=== PATIENT | male | born 1960 | race Caucasian/White ===

== ENCOUNTER 2019-01-25 19:41 | Emergency (ER) | payer BC ==
--- NOTE | 2019-01-25 20:02 | RAD ---
Exam: Chest one view HISTORY:Lightheadedness. Atrial fibrillation Comparison: 02/21/2014 FINDINGS: Lungs: No masses or consolidation. Cardiac silhouette: Normal size Pulmonary vessels: Normal Pleural Spaces: Clear Pneumothorax: None Osseous abnormalities: None of acuity. IMPRESSION: No focal consolidation.
[2019-01-25 20:17] LABS: #Basophils 0.1 thou/uL (0.0-0.2); #Eosinphils 0.1 thou/uL (0.0-0.7); #Lymphocytes 1.9 thou/uL (1.20-3.40); #Monocytes 0.7 thou/uL (0.11-0.59); #Neutrophils 8.2 thou/uL (1.40-6.50); %Basophils 0.5 % (0.0-1.0); %Eosinophils 0.6 % (0.0-10.0); %Lymphocytes 17.7 % (21.0-51.0); %Monocytes 6.5 % (0.0-10.0); %Neutrophils 74.6 % (42.0-75.0); Hemoglobin 17.6 g/dL (14.0-18.0); Mean Corpuscular Hemoglobin 33.3 pg (27.0-31.0); Mean Corpuscular Volume 97.7 fL (78.0-98.0); Mean Platelet Volume 8.1 fL (7.4-10.4); Platelet Count 203 thou/uL (130-400); RBC Distribution Width 11.6 % (11.5-14.5); White Blood Cell (WBC) Count 10.9 thou/uL (4.8-10.8)
[2019-01-25 20:47] LABS: ALT (SGPT) 34 U/L (8-55); AST (SGOT) 30 U/L (5-34); Albumin 4.6 g/dL (3.5-5.0); Alkaline Phosphatase 51 U/L (40-150); Anion Gap 14 mmol/L (10-20); BUN (Urea Nitrogen) 19 mg/dL (8.4-25.7); Bilirubin, Total 0.9 mg/dL (0.2-1.2); CK (CPK) 307 U/L (30-200); Calc. Creatinine Clearance 0 mL/min (70-130); Calcium 10.2 mg/dL (7.8-10.44); Carbon Dioxide 24 mmol/L (22-29); Chloride 102 mmol/L (98-107); Estimated GFR-MDRD 39; Globulin 2.3 g/dL (2.4-3.5); Glucose 88 mg/dL (70-105); Potassium 4.3 mmol/L (3.5-5.1); Protein, Total 6.9 g/dL (6.0-8.3); Sodium 136 mmol/L (136-145)
== END 2019-01-26 00:05 | disposition home or self-care (01) ==
LOC: ERS 19:41
DX: I48.91 Unspecified atrial fibrillation (principal); E86.0 Dehydration; E78.5 Hyperlipidemia, unspecified; I10 Essential (primary) hypertension; F32.9 Major depressive disorder, single episode, unspecified; F17.210 Nicotine dependence, cigarettes, uncomplicated; Z79.899 Other long term (current) drug therapy
CPT/HCPCS: 36415; 71045; 80053; 82550; 84484; 85025; 93005; 94760; 96360; 96361

== ENCOUNTER 2019-11-12 12:33 | Outpatient (CLI) | payer BC ==
--- NOTE | 2019-11-12 13:36 | MRI ---
MRI LOWER EXTREMITY JOINT RIGHT WITHOUT CONTRAST: History: M23.91 internal derangement of right knee. Comparison: None. Findings: Medial meniscus: Free edge partial tearing posterior horn medial meniscus as well as undersurface fla p tear posterior horn and body junction without significant tissue displacement. Lateral meniscus: Free edge fraying lateral meniscal body without displaced tear. Extensor mechanism: Quadriceps tendon, patella, and patellar tendon are intact. Mild proximal patella r tendinosis. The MCL, LCL, PCL are intact. Moderate intraligamentous mucinous degeneration anterior cruciate ligam ent. Insertional footprint subcortical cysts at the tibial footprint. Cartilage: Patellofemoral compartment: Multifocal full-thickness chondral fissures of the central patellar apex with subcortical reactive marrow change. Mild chondral delamination lateral patellar facet. Medial compartment: A few high-grade chondral fissures posterior weightbearing surface medial femoral condyle. 3 mm x 7 mm area of chondral delamination posterior flexion zone medial femoral condyle. Lateral compartment: A few 50-75% chondral fissures central weightbearing surface lateral femoral con dyle and lateral tibial plateau. Soft tissues: Moderate joint effusion. Mild posterior medial synovitis. Mild superficial soft tissue swelling. Bones: No fracture. No malalignment. No contusion. Impression: 1. 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 2. 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 3. Mild free edge fraying lateral meniscal body without displaced tear. 4. Nondisplaced undersurface flap tear posterior horn and body junction medial meniscus without displ acement of meniscal tissue. 5. Mild free edge fraying and low-grade radial tear posterior horn medial meniscus. Transcribed Date/Time: 11/12/2019 2:33 PM
== END 2019-11-12 12:34 | disposition home or self-care (01) ==
LOC: TBSIIMAG 12:33
PROVIDERS: ATTEND Orthopaedic Surgery
DX: M23.91 Unspecified internal derangement of right knee (principal); M94.261 Chondromalacia, right knee; S83.241A Other tear of medial meniscus, current injury, right knee, initial encounter

== ENCOUNTER 2021-02-21 13:34 | Outpatient (CLI) | payer BC | END 2021-02-21 13:35 | disposition home or self-care (01) | LOC: BICRAD 13:34 | PROVIDERS: ATTEND Internal Medicine Critical Care Medicine | DX: R06.09 Other forms of dyspnea (principal) | CPT/HCPCS: 71046 ==

== ENCOUNTER 2022-06-06 07:12 | Outpatient (CLI) | payer BC ==
[2022-06-06 09:02] LABS: Hemoglobin 17.8 g/dL (13.5-17.5); Mean Corpuscular HGB CONC 34.9 g/dL (32.0-36.0); Mean Corpuscular Volume 91.7 fl (81.2-95.1); Mean Platelet Volume 11.4 fl (7.4-10.4); Platelet Count 172 10x3/uL (150-450); RBC Distribution Width 13.3 % (11.5-14.5); Red Blood Cell (RBC) Count 5.56 10x6/uL (4.32-5.72); White Blood Cell (WBC) Count 6.7 10x3/uL (3.5-10.5)
[2022-06-06 09:21] LABS: Prothrombin Time 10.9 sec (9.5-12.1)
[2022-06-06 09:30] LABS: Anion Gap 16 mmol/L (10-20); BUN (Urea Nitrogen) 12 mg/dL (8.4-25.7); Calc. Creatinine Clearance 0 mL/min (70-130); Calcium 9.7 mg/dL (7.8-10.44); Carbon Dioxide 24 mmol/L (23-31); Chloride 101 mmol/L (98-107); Estimated GFR 79; Glucose 136 mg/dL (80-115); Potassium 4.7 mmol/L (3.5-5.1); Sodium 136 mmol/L (136-145)
== END 2022-06-06 07:13 | disposition home or self-care (01) ==
LOC: LABBT 07:12
PROVIDERS: ATTEND Internal Medicine Cardiovascular Disease
DX: Z01.812 Encounter for preprocedural laboratory examination (principal); Z20.822 Contact with and (suspected) exposure to COVID-19
CPT/HCPCS: 80048; 85027; 85610; 85730; 87811

== ENCOUNTER 2022-06-11 08:39 | Day surgery (SDC) | payer BC ==
[2022-06-07 12:44] VITALS: BMI 37.8
[2022-06-11] MEDS ORDERED: Protamine Sulfate 50 MG/5 ML VIAL ONE (09:01)
[2022-06-11] MEDS ORDERED: Heparin 10,000 UNITS/ 10 ML VIAL ONE (09:01)
[2022-06-11] MEDS ORDERED: Heparin 25,000 units/D5W 500 ML ONE (09:01)
[2022-06-11] MEDS ORDERED: fentaNYL Citrate/PF 100 MCG/2 ML SYRINGE ONE (10:18)
[2022-06-11] MEDS ORDERED: Dexmedetomidine 200 MCG/2 ML VIAL ONE (10:18)
[2022-06-11] MEDS ORDERED: Midazolam HCl 2 mg/2 ml Vial ONE (10:19)
[2022-06-11] MEDS ORDERED: Rocuronium Bromide 10 MG/ML (10ML VIAL) ONE (10:40)
[2022-06-11] MEDS ORDERED: Phenylephrine 10 MG/ML VIAL ONE (10:40)
[2022-06-11] MEDS ORDERED: Dexamethasone 20 MG/5 ML VIAL ONE (10:40)
[2022-06-11] MEDS ORDERED: Lidocaine 1% MPF 2 ML VIAL ONE (10:40)
[2022-06-11] MEDS ORDERED: Ondansetron PF 4 MG/2 ML Vial ONE (10:40)
[2022-06-11] MEDS ORDERED: PROPOFOL 200 MG/20 ML VIAL ONE (10:40)
[2022-06-11] MEDS ORDERED: SUGAMMADEX SODIUM 200 MG/2 ML VIAL ONE (14:18)
== END 2022-06-11 17:06 | disposition home or self-care (01) ==
LOC: SDC 08:39
PROVIDERS: ATTEND Internal Medicine Cardiovascular Disease
PROC: B246ZZ4 Ultrasonography of Right and Left Heart, Transesophageal (ICD-10-PCS; principal; 2022-06-11)
PROC: 02583ZZ Destruction of Conduction Mechanism, Percutaneous Approach (ICD-10-PCS; principal; 2022-06-11)
PROC: 02K83ZZ Map Conduction Mechanism, Percutaneous Approach (ICD-10-PCS; principal; 2022-06-11)
DX: I48.19 Other persistent atrial fibrillation (principal); I08.1 Rheumatic disorders of both mitral and tricuspid valves; I11.9 Hypertensive heart disease without heart failure; G47.33 Obstructive sleep apnea (adult) (pediatric); E78.5 Hyperlipidemia, unspecified; N40.0 Benign prostatic hyperplasia without lower urinary tract symptoms; F17.290 Nicotine dependence, other tobacco product, uncomplicated; Z79.01 Long term (current) use of anticoagulants; Z79.899 Other long term (current) drug therapy
CPT/HCPCS: 85347; 93005; 93312; 93656; 93657; 93662; C1730; C1732; C1759; C1760; C1769; C1894; C2630; J1100; J1644; J2250; J2370; J2405; J2704; J2720